=== PATIENT | male | born 1965 | race Caucasian/White ===

== ENCOUNTER 2016-10-21 13:06 | Emergency (ER) | payer OTHER ==
[~2016-10-21] VITALS: Ht 177.8 cm; Wt 84.1 kg
[2016-10-21 13:07] VITALS: BP 127/84
--- NOTE | 2016-10-21 14:16 | REP ---
Clinical: Right-sided testicular pain. History of left orchiectomy. Technique: Graham scale and color Doppler evaluation using linear and curved array transducer with color Doppler evaluation. Findings: The right testicles and epididymi are relatively normal in contour, size, echogenicity, vascularity and overall appearance. There is no evidence for intratesticular mass lesion, infectious/inflammatory process, with torsion. No obvious hydroceles or varicoceles are identified. Cystic changes to the mediastinum testis is a normal nonspecific finding. Right testicle measures 5.4 x 2.5 x 3.4 cm. Impression: Prior left orchiectomy. Normal appearance to the right testicle and scrotum. No evidence for mass lesion, torsion or infectious/inflammatory process. Signed by Stevie Hill MD 10/21/2016 02:09 P
[2016-10-21] MEDS ORDERED: NAPR500T PO (14:28)
== END 2016-10-21 14:37 | disposition home or self-care (01) ==
LOC: M ED 13:06
DX: N50.811 Right testicular pain (principal); R31.29 Other microscopic hematuria

== ENCOUNTER → 2020-08-13 | Outpatient (REF) | payer OTHER ==
[~2020-08-13] MED LIST: NAPR-837 PO
[2020-08-13 17:36] LABS: APPEARANCE, URINE HAZY (CLEAR); BACTERIA, URINE AUTO NEGATIVE (NEGATIVE); BILIRUBIN, URINE AUTO NEGATIVE (NEGATIVE); BLOOD, URINE BLOOD 1+ (NEGATIVE); COLOR, URINE YELLOW (YELLOW); GLUCOSE, URINE (UA) AUTO NEGATIVE (NEGATIVE); KETONE, URINE AUTO NEGATIVE (NEGATIVE); LEUKOCYTE ESTERASE, URINE AUTO NEGATIVE (NEGATIVE); MUCUS, URINE SMALL (NEGATIVE); NITRITE, URINE AUTO NEGATIVE (NEGATIVE); PROTEIN, URINE AUTO NEGATIVE (NEGATIVE); RBC, URINE AUTO 2 /HPF (0-3); SPECIFIC GRAVITY URINE AUTO 1.025 (1.002-1.035); SQUAMOUS EPITHELIAL CELL UR AU 0 /HPF (0-6); UROBILINOGEN, URINE AUTO 0.2 mg/dL (0.0-2.0); WBC, URINE AUTO 4 /HPF (0-3)
== END ==
LOC: M SMT 17:11
PROVIDERS: ATTEND Urology
DX: R31.0 Gross hematuria (principal)

== ENCOUNTER → 2020-08-20 | Outpatient (CLI) | payer OTHER ==
[~2020-08-20] MED LIST changes: +ISOVUE-370 76% 100ML VIAL ONE
--- NOTE | 2020-08-20 23:13 | REP ---
INDICATION: GROSS HEMATURIA. COMPARISON: None TECHNIQUE: Axial precontrast, contrast-enhanced and delayed images from the lung bases to the pubic symphysis using 100 cc Isovue 370 intravenous contrast material. Coronal and sagittal reformations along with volume rendered 3D CT urogram images. This CT examination was performed using the following dose reduction techniques: Automated exposure control, adjustment of mA and/or kv according to the patient's size, and the use of iterative reconstruction technique. FINDINGS: Right kidney includes 3.8 cm midpole simple cyst and the left kidney includes 9 mm anterior midpole simple cyst. The kidneys demonstrate symmetric enhancement and symmetric excretion to the collecting system. There is no evidence for hydroureteronephrosis or nephroureterolithiasis. No urinary tract mass lesion identified. Bladder is unremarkable. Liver includes 2.3 cm benign appearing cyst in the left hepatic lobe. Spleen, pancreas, gallbladder, and bilateral adrenal glands are normal. The enteric system includes small hiatal hernia and few scattered sigmoid diverticula. There is no evidence for bowel obstruction or acute inflammatory process. Normal terminal ileum and appendix identified in the right lower quadrant. Small fat containing right inguinal hernia noted. Pelvis demonstrates normal bladder and age-appropriate prostate/seminal vesicles. No ascites. No free air. No intraperitoneal or retroperitoneal adenopathy. Abdominal aorta and vasculature appear normal. Musculoskeletal structures are intact and without acute osseous abnormality. IMPRESSION: No acute abdominopelvic pathology appreciated. Simple renal cysts and simple appearing hepatic cyst noted. <Electronically signed by Stevie Hill > 08/20/20 [id number]
== END ==
LOC: M PLAIMG 14:58
PROVIDERS: ATTEND Urology
DX: N28.1 Cyst of kidney, acquired (principal); R93.2 Abnormal findings on diagnostic imaging of liver and biliary tract; R31.0 Gross hematuria
CPT/HCPCS: 74176; Q9967

== ENCOUNTER → 2020-08-21 | Outpatient (CLI) | payer OTHER ==
[~2020-08-21] MED LIST changes: -ISOVUE-370 76% 100ML VIAL ONE
[2020-08-21 17:19] LABS: BLOOD UREA NITROGEN 13 MG/DL (7-18); CALCIUM LEVEL 8.8 MG/DL (8.5-10.1); CARBON DIOXIDE LEVEL 29 MEQ/L (21-32); CHLORIDE LEVEL 105 MEQ/L (98-107); CREATININE FOR GFR 0.98 MG/DL (0.70-1.30); GLOMERULAR FILTRATION RATE > 60.0 (>56); GLUCOSE, FASTING 82 MG/DL (70-100); SODIUM LEVEL 140 MEQ/L (136-145)
[2020-08-25 14:08] LABS: PSA TOTAL 1.2 ng/mL (0.0-4.0)
== END ==
LOC: M PLALAB 15:36
PROVIDERS: ATTEND Urology
DX: R31.0 Gross hematuria (principal); R97.20 Elevated prostate specific antigen [PSA]

== ENCOUNTER → 2021-05-06 | Outpatient (CLI) | payer OTHER | LOC: M RAD 10:54 | PROVIDERS: ATTEND Internal Medicine | DX: H53.8 Other visual disturbances (principal); R51.9 Headache, unspecified ==

== ENCOUNTER → 2021-06-24 | Outpatient (CLI) | payer OTHER | LOC: M WHC 11:53 | DX: M79.669 Pain in unspecified lower leg (principal); M79.89 Other specified soft tissue disorders ==

== ENCOUNTER → 2024-09-20 | Outpatient (CLI) | payer OTHER ==
[~2024-09-20] MED LIST changes: +METHACHOLINE KIT (6 VIAL.NEB PREMIX) INH ONE
== END ==
LOC: M CARPUL 09:38
PROVIDERS: ATTEND Internal Medicine Pulmonary Disease
DX: R06.02 Shortness of breath (principal)
CPT/HCPCS: 88738; 94010; 94070; 94726; 94729; 95070; J7674

== ENCOUNTER → 2024-09-21 | Outpatient (CLI) | payer OTHER ==
[~2024-09-21] MED LIST changes: -METHACHOLINE KIT (6 VIAL.NEB PREMIX) INH ONE
== END ==
LOC: M PLAIMG 09:18
PROVIDERS: ATTEND Internal Medicine Pulmonary Disease
DX: R06.02 Shortness of breath (principal); K76.89 Other specified diseases of liver; D18.03 Hemangioma of intra-abdominal structures